=== PATIENT | female | born 1985 | race Caucasian/White ===

== ENCOUNTER 2018-08-16 12:54 | Emergency (ER) | payer SELFPAY ==
[~2018-08-16] VITALS: Ht 157.5 cm; Wt 86.2 kg
--- OUTSIDE RECORDS SUMMARY | 2018-08-16 12:59 | XMS REPORT ---
Author Author [facility] Organization [facility] Address Unknown Phone Unavailable Care Team Providers Care Electrotherapist Name Role Phone Tuyet Carranza PCP Jeff Michaels PCP Assessments SunMay 21 07:00:00 EST 2019: "I'm very good at talking with my daughter and calming her down, we're very close." Bibi says "you're good to talk to, good cook, communication - talking things through." Health Concerns No Known Health Concerns Allergies No Known Allergy Information Encounters Program Name Primary Diagnosis Admission Date/Time Discharge Date/Time ADMISSION PROGRAM Agoraphobia with panic attacks SunMay 21 09:39:00 EST 2018Jun 27 12:59:00 EST 2019 Immunizations No Known Immunizations Lab Results No Known Laboratory Results Medical Equipment No Known Medical Equipment Medications No Known Medication Information Treatment Plan Interventions Initial Psychiatric Evaluation, Ongoing medication monitoring and management, Case Conference with multidisciplinary members of the [facility] team as indicated, and/or Collaboration and coordination with outside medical providers as indicated by providing the following services: 63238 interactive complexity 31150 psychiatric diagnostic eval w/ meds 91060 30 min psychotherapy add-on 96194 45 [place] [address] 60 min psychotherapy add-on 15749 Psychological Testing 07559 med injection 35882 New Patient E&M (level 1) 62042 New Patient E&M (level 2) 95857 New Patient E&M (level 3) 19421 New patient E&M (level 4) 39880 New Patient E&M (level 5) 42293 Established Patient E&M (level 1) 90493 Established Patient E&M (level 2) 49104 Established Patient E&M (level 3) 89084 Established Patient E&M (level 4) 00971 Established Patient E&M (level 5) 9935x prolonged service code 19937 case conference w/o clt & fam w/ [place] 552[address] case conference w/o clt w/ ADULT CASE MANAGEMENT SERVICE BUNDLE - Provide the following services 1-3 times each week: + 05797 Psychological Testing + 98895 Case Conf w/Clt nn-Physician + 01405 Case Conf w/o clt + family w/MD + 12890 Case Conf no Clt, no MD, w/QMHP + [id number] CPST Adult + [id number] Strength Based Case Mgmt + T1017 TCM - Targeted Case Management ADULT THERAPY SERVICE BUNDLE - Provide the following services 1-3 times each week: + 98613 Psychotherapy, 16-37 Minutes + 37097 Psychotherapy, 38-52 Minutes + 59023 Psychotherapy, 53+ Minutes + 73099 Psychotherapy for Crisis 31-74 Minutes + 52278 Each Add'l 30 Min Crisis Psychotherapy + 57620 Group Therapy + 27377 Psychological Testing + 88771 Case Conf w/Clt NN-Physician + 69978 Case Conf w/o Clt + Fam w/ + 50709 Case Conf w/o Clt w/MD + [id number] Psychosocial Adult Group + T1017 TCM - Targeted Case Management Engage with treatment team to build rapport. Learn and practice coping skills to reduce symptoms and improve functioning. The following Services will be utilized 1 - 3 times until goal is reached: Problems Active Concerns* Mental problems* Code: [id number] * Start Date: SunMay 21 07:00:00 EST 2018 Procedures No Known Procedures Social History Social History Observation Description Date Smoking Status Current Every Day Smoker SunMay 21 07:00: 00 EST 2018 Sex Female SunMay 16 07:00:00 EST 1985 Vital Signs No Known Vitals
[2018-08-16] MEDS ORDERED: LISI-552 PO (13:10)
--- NOTE | 2018-08-16 13:10 | ED Lower Extremity ---
General Chief Complaint: Lower Extremity Stated Complaint: L FOOT PAIN Nursing Triage Note: HERE FOR THE [facility] AND STATES SHE FELT A POP/PAIN WHEN SHE STEPPED OFF A STEP ON HER LEFT FOOT. PT HAS A PERVIOUS FX 5TH LEFT TOE. APPT TOMMOROW FOR HER TOE. PT HAS A WALKING BOOT ON. Nursing Sepsis Screen: No Definite Risk Source: patient Exam Limitations: no limitations History of Present Illness Date Seen by Provider: Aug 16, 2018 Time Seen by Provider: 13:08 Initial Comments Ambulatory to ER from the [facility] that [place] is hosting today. She resides in [facility]. She stepped off a curb and felt a pop in the left side of her foot. She fractured the fifth metatarsal on August 04 and has an appointment with an orthopedist in her home town tomorrow. She arrives in a walking boot. Onset: just prior to arrival Severity: moderate Pain/Injury Location: left foot Modifying Factors: Worse With Movement Allergies and Home Medications Allergies Coded Allergies: amoxicillin (Verified Adverse Reaction, Unknown, THRUSH, 08/16/18) clavulanic acid (Verified Adverse Reaction, Unknown, THRUSH, 08/16/18) diclofenac (Verified Adverse Reaction, Unknown, MIGRAINE, 08/16/18) Home Medications Lisinopril 20 Mg Tablet, 20 MG PO DAILY, (Reported) Patient Home Medication List Home Medication List Reviewed: Yes Review of Systems Constitutional: see HPI EENTM: see HPI Respiratory: no symptoms reported Cardiovascular: no symptoms reported Genitourinary: no symptoms reported Musculoskeletal: see HPI Skin: no symptoms reported Psychiatric/Neurological: No Symptoms Reported Past [id number] Hx Patient Social History Alcohol Use: Denies Use Recreational Drug Use: No Smoking Status: Current Everyday Smoker Recent Foreign Travel: No Contact w/Someone Who Travel: No Recent Infectious Disease Expo: No Seasonal Allergies Seasonal Allergies: No Past Medical History Surgeries: Yes (CYST REMOVAL, D&C) Gallbladder, Tubal Ligation Respiratory: No Cardiac: Yes Hypertension Neurological: No : No Last Menstrual Period: Jul 27, 2018 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 oz. 86.234512he; BMI Method:Stated General Appearance: WD/WN, no apparent distress HEENT: PERRL/EOMI, normal ENT inspection Legs: bilateral leg non-tender, bilateral leg normal inspection, bilateral leg normal range of motion Knees: bilateral knee non-tender, bilateral knee normal inspection, bilateral knee normal range of motion Ankles: bilateral ankle non-tender, bilateral ankle normal inspection, bilateral ankle normal range of motion Feet: left foot other (complains of pain over the proximal fourth and fifth metatarsal. There is no swelling or ecchymosis abrasion or deformity.) Neurologic/Psychiatric: alert, normal mood/affect, oriented x 3 Skin: normal color, warm/dry Progress/Results/Core Measures Results/Orders My Orders Orders - ANGE HUTCHINSON APRN Foot, Left, 3 Views (08/16/18 13:04) Vital Signs/I&O 08/16/18 08/16/18 13:01 13:42 Temp 98.0 98.0 Pulse 78 78 Resp 16 16 B/P (MAP) 120/78 (92) 120/78 (92) Pulse Ox 98 98 O2 Delivery Room Air Blood Pressure Mean: 92 Departure Impression Primary Impression: subacute fracture of fifth metatarsal Disposition: 01 HOME, SELF-CARE Condition: Stable Departure-Patient Inst. Decision time for Depature: 13:10 Patient Instructions: Foot Fracture (DC) Add. Discharge Instructions: 1. Return to ER for any concerns 2. Follow up with your doctor tomorrow as scheduled. Continue wearing the walking boot. All discharge instructions reviewed with patient and/or family. Voiced understanding. ANGE HUTCHINSON APRN Aug 16, 2018 13:10
--- NOTE | 2018-08-16 13:32 | Diagnostic Imaging Report ---
INDICATION: Left fifth metatarsal fracture. Three views of left foot show a nondisplaced avulsion fracture at the base of fifth metatarsal. No other abnormality seen. IMPRESSION: Nondisplaced avulsion fracture at the base of left fifth metatarsal. Dictated by: Dictated on workstation # [id number]
[2018-08-16 13:42] VITALS: BP 120/78
== END 2018-08-16 13:41 | disposition home or self-care (01) ==
LOC: ER 12:56
DX: S92.355A Nondisplaced fracture of fifth metatarsal bone, left foot, initial encounter for closed fracture (principal); I10 Essential (primary) hypertension; F17.200 Nicotine dependence, unspecified, uncomplicated; Z98.51 Tubal ligation status; Z88.1 Allergy status to other antibiotic agents; Z88.8 Allergy status to other drugs, medicaments and biological substances; Z88.6 Allergy status to analgesic agent; X50.1XXA Overexertion from prolonged static or awkward postures, initial encounter
CPT/HCPCS: 73630